=== PATIENT | male | born 1980 | race Asian ===

== ENCOUNTER 2020-05-31 13:19 | Emergency (ER) | payer OTHER ==
[~2020-05-31] VITALS: Ht 175.3 cm; Wt 79.4 kg
[2020-05-31 14:38] VITALS: BP 122/86; TEMP 98.6
== END 2020-05-31 14:38 | disposition home or self-care (01) ==
LOC: ED 13:19
DX: J20.9 Acute bronchitis, unspecified (principal); Z20.828 Contact with and (suspected) exposure to other viral communicable diseases
CPT/HCPCS: 87635; 99282; U0003